=== PATIENT | female | born 1975 | race Caucasian/White ===

== ENCOUNTER 2022-07-03 09:18 | Day surgery (SDC) | payer BC ==
[2022-07-01 11:20] VITALS: BMI 34.9
[2022-07-03] MEDS ORDERED: PROPOFOL 40 ML ONE (09:35)
[2022-07-03] MEDS ORDERED: Lidocaine 1% PF 5 ML VIAL ONE (09:35)
== END 2022-07-03 11:03 | disposition home or self-care (01) ==
LOC: CSHSDC 09:18
PROVIDERS: ATTEND Surgery
PROC: 0DBN8ZZ Excision of Sigmoid Colon, Via Natural or Artificial Opening Endoscopic (ICD-10-PCS; principal; 2022-07-03)
DX: Z12.11 Encounter for screening for malignant neoplasm of colon (principal); D12.5 Benign neoplasm of sigmoid colon; Z79.899 Other long term (current) drug therapy; Z91.040 Latex allergy status
CPT/HCPCS: 88305; J2704